=== PATIENT | male | born 2000 | race Caucasian/White ===

== ENCOUNTER 2020-08-31 01:10 | Emergency (ER) | payer BC ==
[~2020-08-31] VITALS: Ht 182.9 cm; Wt 79.4 kg
[~2020-08-31 01:10] MED LIST: ONDA4ODT MM
[2020-08-31] MEDS ORDERED: BENADRYL25 MG PO (01:22)
[2020-08-31] MEDS ORDERED: Prednisone20 MG PO (01:22)
== END 2020-08-31 01:32 | disposition home or self-care (01) ==
LOC: ER 01:10
DX: L23.7 Allergic contact dermatitis due to plants, except food (principal); Z79.52 Long term (current) use of systemic steroids; Z79.899 Other long term (current) drug therapy
CPT/HCPCS: 99282; J7512; Q0163